=== PATIENT | male | born 1955 | race Caucasian/White ===

== ENCOUNTER 2017-07-11 20:36 | Emergency (ER) | payer BC ==
[~2017-07-11] VITALS: Ht 182.9 cm; Wt 115.0 kg
[2017-07-11 20:37] VITALS: BP 154/84; PULSE 73; RESP 16; TEMP 97.9; O2SAT 96
[2017-07-11] MEDS ORDERED: BRIL90TA PO (21:15)
[2017-07-11] MEDS ORDERED: LOSA100T3 PO (21:15)
[2017-07-11] MEDS ORDERED: PROT40TA PO (21:15)
[2017-07-11] MEDS ORDERED: ASPI81CH37 CHEW (21:15)
[2017-07-11] MEDS ORDERED: ATOR20TA15 PO (21:15)
[2017-07-11] MEDS ORDERED: CIAL5TAB PO (21:15)
[2017-07-11] MEDS ORDERED: METO25TA3 PO (21:15)
--- NOTE | 2017-07-11 21:41 | PD ---
HPI Chief Complaint: Eye Problems/Injury Time Seen by Provider: 21:26 Travel History International Travel<30 days: No Contact w/Intl Traveler<30days: No Traveled to known affect area: No History of Present Illness HPI [place]. 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 denies eye pain/rosas/neck pain/ fever/cp/abd pain/n/v/d/ pmhx: htn, chol, cardiac stent on brilinta has an opthalmologist dr huerta sees for routine (myopia) has not been diagnosed with any other conditions) PFSH Past Medical History Cardiac Catheterization: Yes High Cholesterol: Yes Diminished Hearing: No GERD: Yes Hypertension: Yes Kidney Stones: Yes Myocardial Infarction: Yes Tetanus Vaccination: < 5 Years Past Surgical History Coronary Stent: Yes Other Surgery: Yes (groin hernia repair, lithotrypsy) Social History Alcohol Use: No Tobacco Use: No Substance Use: Yes (marijaunia every couple days) Allergies-Medications (Allergen,Severity, Reaction): Coded Allergies: No Known Allergies (Unverified , 07/11/17) Reported Meds & Prescriptions Reported Meds & Active Scripts Active Reported Protonix (Pantoprazole Sodium) 40 Mg Tab 40 Mg PO DAILY Atorvastatin (Atorvastatin Calcium) 20 Mg Tab 20 Mg PO HS Cialis (Tadalafil) 5 Mg Tab 5 Mg PO DAILY Do not exceed 1 dose/day. Aspirin Low Dose (Aspirin) 81 Mg Chew 81 Mg CHEW DAILY Brilinta (Ticagrelor) 90 Mg Tab 90 Mg PO BID Losartan-Hydrochlorothiazide 100-12.5 Mg Tab 1 Tab PO DAILY Metoprolol Tartrate 25 Mg Tab 12.5 Mg PO DAILY Review of Systems Except as stated in HPI: all other systems reviewed are Neg Eyes: Positive: Other (flashes of light) Physical Exam Narrative GENERAL: SKIN: Warm and dry. HEAD: Atraumatic. Normocephalic. EYES: Pupils equal and round. No scleral icterus. No injection or drainage. vision 20/40 od and os, as well as neg seidels on flourescein, no corneal ulceration. tonopen avg after 3 measurements 12 on os, 14 on od, bedside ultrasound reveal a small retinal detachment. ENT: No nasal bleeding or discharge. Mucous membranes pink and moist. NECK: Trachea midline. No JVD. CARDIOVASCULAR: Regular rate and rhythm. RESPIRATORY: No accessory muscle use. Clear to auscultation. Breath sounds equal bilaterally. GASTROINTESTINAL: Abdomen soft, non-tender, nondistended. Hepatic and splenic margins not palpable. MUSCULOSKELETAL: Extremities without clubbing, cyanosis, or edema. No obvious deformities. NEUROLOGICAL: Awake and alert. No obvious cranial nerve deficits. Motor grossly within normal limits. Five out of 5 muscle strength in the arms and legs. Normal speech. PSYCHIATRIC: Appropriate mood and affect; insight and judgment normal. Data Data Last Documented VS Vital Signs Date Time Temp Pulse Resp B/P (MAP) Pulse Ox O2 Delivery O2 Flow Rate FiO2 07/12/17 00:38 07/11/17 20:37 97.9 73 16 96 Room Air Orders Orders Cyclopentolate 1% Opth Soln (Cyclogyl 1% (07/11/17 22:15) Ed Discharge Order (07/12/17 00:27) [facility] Medical Decision Making Medical Screen Exam Complete: Yes Emergency Medical Condition: Yes Medical Record Reviewed: Yes Differential Diagnosis glaucoma v vitreous hemorrhage v retinal detachment Narrative Course NOTED VITREOUS HEMORRHAGE HOWEVER POSSIBLE RETINAL DETACHMENT CONCERN WITH [facility] PROMPTED CALLING RETINA SPECIALIST WHO WILL COME TO BEDSIDE TO FURTHER EVALUATE. Critical Care Narrative CRITICAL CARE NOTE: With evaluation of the patient, labs, EKG, receipt of radiologic studies, administration of medications, reevaluation the patient and discussion of the patient with the opthalmologist/retinal specialist, the total critical care time was [30] minutes. Time to perform other separately billable procedures was not included in the critical care time. Physician Communication Physician Communication dr peters retinal specialist contacted to discuss management plan and followup since i suspect a small retinal detachment...after phone discussion dr peters will come to see patient personally, states will be here within the hour, requests eye dilation bilaterally (cyclopentolate use was ok to both eyes). dr peters will evaluate to confirm if retinal detachment. at a later time, dr peters personally evaluated and did not find any retinal detachment, but instead only minor retinal Diagnosis Primary Impression: small isolated bilateral retinal hemorrhages Additional Impression: Vitreous hemorrhage of right eye Patient Instructions: General Instructions Disposition: 01 DISCHARGE HOME Condition: Stable Yon Black MD Jul 11, 2017 21:41
[2017-07-11] MEDS ORDERED: CYCLOPENTOLATE HCL 1% OPHT SOLN 2 ML BTL EACH EYE ONE (22:15)
== END 2017-07-12 00:39 | disposition home or self-care (01) ==
LOC: NEPD 20:36
DX: H43.11 Vitreous hemorrhage, right eye (principal); H43.391 Other vitreous opacities, right eye; E78.5 Hyperlipidemia, unspecified; K21.9 Gastro-esophageal reflux disease without esophagitis; I25.2 Old myocardial infarction; I10 Essential (primary) hypertension; Z79.82 Long term (current) use of aspirin; Z79.899 Other long term (current) drug therapy
CPT/HCPCS: 99291